=== PATIENT | male | born 1995 | race Asian ===

== ENCOUNTER 2018-01-30 13:32 | Emergency (ER) | payer OTHER ==
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
[2018-01-30 17:48] VITALS: BP 111/60
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
== END 2018-01-30 17:47 | disposition home or self-care (01) ==
LOC: ED 13:32
DX: S09.90XA Unspecified injury of head, initial encounter (principal); Y08.89XA Assault by other specified means, initial encounter; Y92.9 Unspecified place or not applicable
CPT/HCPCS: 70450; 70486; 99282